=== PATIENT | male | born 1990 | race Caucasian/White ===

== ENCOUNTER 2019-03-12 01:58 | Emergency (ER) | payer OTHER ==
--- NOTE | 2019-03-12 02:10 | ED ---
Psychiatric Complaint - HPI Summary HPI Summary: A 29 y/o male presents to [facility] with a chief complaint of being brought in by police and [employer] ambulance on a .. He denies any depression, anxiety, SI or HI. Per police, he was threatening to kill and rape people in his [place] friends. The patient does not have any physical complaints today. He denies any fevers, N/V/D or abdominal pain. He reports drinking 2-6 beers daily and smoking cigarettes. He denies any current drug use. He is currently not taking any medications. - History Of Current Complaint Hx Obtained From: Patient, EMS, Other: - police Onset/Duration: Sudden Onset, Lasting Hours, Still Present Timing: Constant Severity Initially: Mild Severity Currently: Mild Character: Depressed Aggravating Factor(s): Nothing Alleviating Factor(s): Nothing Associated Signs And Symptoms: Positive: Hostile Related History: Positive For: Prior Psychiatric Issues Has Suicidal: Denies: Thoughts Has Homicidal: Denies: Thoughts - Allergies/Home Medications Allergies/Adverse Reactions: Allergies Allergy/AdvReac Type Severity Reaction Status Date / Time risperidone Allergy Severe Anxiety Verified 12/21/18 11:18 PMH/Surg Hx/FS Hx/Imm Hx Cardiovascular History: Denies: Hx Angina Sensory History: Denies: Hx Legally Blind, Hx Deafness Opthamlomology History: Reports: Hx Contacts or Glasses Denies: Hx Legally Blind Psychiatric History: Reports: Hx [facility] Tx, Other Psychiatric Issues/Disorders - presented with paranoid thoughts and bizarre behavior Denies: Hx Eating Disorder, Hx Inpatient Treatment, Hx of Violent Episodes Against Others - Cancer History Hx Chemotherapy: No Hx Radiation Therapy: No - Surgical History Surgery Procedure, Year, and Place: broken collar bone - Family History Known Family History: Negative: Seizure Disorder - Social History Alcohol Use: Rare Substance Use Type: Reports: Marijuana Substance Use Comment - Amount & Last Used: rare marijuana use Smoking Status (MU): Heavy Every Day Tobacco Smoker Review of Systems Negative: Fever Negative: Abdominal Pain, Vomiting, Diarrhea, Nausea Psychological: Other - positive: ., reportedly threatened to kill and rape friends All Other Systems Reviewed And Are Negative: Yes Physical Exam - Summary Physical Exam Summary: Constitutional: Well-developed, Well-nourished, Alert. (-) Distressed Skin: Warm, Dry HENT: Normocephalic; Atraumatic Eyes: Conjunctiva normal Neck: Musculoskeletal ROM normal neck. (-) JVD, (-) Stridor, (-) Tracheal deviation Cardio: Rhythm regular, rate normal, Heart sounds normal; Intact distal pulses; The pedal pulses are 2+ and symmetric. Radial pulses are 2+ and symmetric. (-) Murmur Pulmonary/Chest wall: Effort normal. (-) Respiratory distress, (-) Wheezes, (-) Rales Abd: Soft, (-) tenderness, (-) Distension, (-) Guarding, (-) Rebound Musculoskeletal: (-) Edema Lymph: (-) Cervical adenopathy Neuro: Alert, Oriented x3 Psych: Disheveled. Denies SI or HI. Triage Information Reviewed: Yes Vital Signs Reviewed: Yes Diagnostics - Laboratory Result Diagrams: 03/12/19 02:32 03/12/19 02:32 Lab Statement: Any lab studies that have been ordered have been reviewed, and results considered in the medical decision making process. Course/Dx - Course Course Of Treatment: A 29 y/o male presents to [facility] with a chief complaint of being brought in by police and [employer] ambulance on a 9.41. He denies any depression, anxiety, SI or HI. Per police, he was threatening to kill and rape people in his [place] friends. The physical exam revealed that the patient is disheveled but denies SI or HI. In the ED course the patient was given Ativan IM and a nicotine patch. Blood work, chemistries, urines and toxicology obtained. Serum alcohol of 288 at 02:32. This patient will be signed out from Dr. Galeas to Dr. Hall upon shift change at 07:00 03/12/19 pending medical clearance and MHE. - Differential Dx/Clinical Impression Provider Diagnosis: Schizophrenia, Depression Discharge - Sign-Out/Discharge Documenting (check all that apply): Sign-Out Patient Signing out patient TO: Gabbi Hall - pending clearance and MHE Patient Received Moderate/Deep Sedation with Procedure: No - Discharge Plan Condition: Stable Disposition: TRANS HIGHER LVL OF CARE FAC Referrals: No Primary Care Phys,NOPCP [Primary Care Provider] - - Billing Disposition and Condition Condition: STABLE Disposition: Trans Higher Lvl of Care Fac - Attestation Statements Document Initiated by Scribe: Yes Documenting Scribe: Glenn Michaels Provider For Whom Scribe is Documenting (Include Credential): Maira Schuler MD Scribe Attestation: I, Glenn Michaels, scribed for Maira Galeas MD on 03/13/19 at 0745. Scribe Documentation Reviewed: Yes Provider Attestation: The documentation as recorded by the scribe, Glenn Michaels accurately reflects the service I personally performed and the decisions made by me, Maira Galeas MD Status of Scribe Document: Viewed
[2019-03-12 02:39] LABS: ABS Basophils 0.1 10^3/ul (0-0.2); ABS Eosinophils 0.2 10^3/ul (0-0.6); ABS Lymphocytes 1.6 10^3/ul (1.0-4.8); ABS Monocytes 0.6 10^3/ul (0-0.8); ABS Neutrophils 3.6 10^3/ul (1.5-7.7); Eosinophil % 2.9 %; Hematocrit 40 % (42-52); Hemoglobin 14.2 g/dL (14.0-18.0); Lymphocyte % 25.8 %; Mean Corpuscular HGB Conc 35 g/dL (31-36); Mean Corpuscular Hemoglobin 34 pg (27-31); Mean Corpuscular Volume 96 fL (80-94); Mean Platelet Volume 7.8 fL (7.4-10.4); Platelet Count 309 10^3/uL (150-450); Red Blood Count 4.21 10^6 /uL (4.18-5.48); Red Cell Distribution Width 15 % (10-15)
[2019-03-12 02:55] LABS: ALT 89 U/L (7-52); AST 87 U/L (13-39); Albumin 4.7 g/dL (3.2-5.2); Albumin/Globulin Ratio 1.9 (1-3); Alkaline Phosphatase 64 U/L (34-104); Anion Gap 13 mmol/L (2-11); BUN/Creatinine Ratio 5.9 (8-20); Blood Urea Nitrogen 6 mg/dL (6-24); CO2 Carbon Dioxide 25 mmol/L (22-32); Calcium 9.2 mg/dL (8.6-10.3); Chloride 101 mmol/L (101-111); EGFR African American 103.1 (>60); EGFR Non-African American 85.2 (>60); Globulin 2.5 g/dL (2-4); Glucose 97 mg/dL (70-100); Potassium 3.5 mmol/L (3.5-5.0); Sodium 139 mmol/L (135-145); Total Protein 7.2 g/dL (6.4-8.9)
[2019-03-12 03:06] LABS: Urine Appearance Clear; Urine Bilirubin Negative (Negative); Urine Blood Negative (Negative); Urine Color Yellow; Urine Glucose Negative (Negative); Urine Ketones Negative (Negative); Urine Nitrite Negative (Negative); Urine Protein Negative (Negative); Urine Specific Gravity 1.006 (1.010-1.030); Urine Urobilinogen Negative (Negative)
[2019-03-12 03:19] LABS: Urine Benzodiazepine Screen None Detected (None Detect); Urine Opiates Screen None Detected (None Detect)
[2019-03-12 03:19] LABS: Acetaminophen < 15 mcg/mL; Alcohol 288 mg/dL (<10); Salicylate < 2.50 mg/dL (<30)
[2019-03-12 03:34] LABS: TSH (Thyroid Stimulating Horm) 1.75 mcIU/mL (0.34-5.60)
[2019-03-12] MEDS ORDERED: Lorazepam PYXIS KEY PRN (03:49)
[2019-03-12] MEDS ORDERED: LORazepam INJ* 2 MG/ML 1 ML VIAL IM ONE (03:49)
[2019-03-12] MEDS ORDERED: Nicotine* 4MG (FRUIT FLAVOR) GUM PO PRN (04:01)
[2019-03-12] MEDS ORDERED: Nicotine PATCH 21 MG/24 HR* PATCH TRANSDERM ONE (04:02)
[2019-03-12] MEDS ORDERED: Lorazepam PYXIS KEY ONE (04:09)
--- NOTE | 2019-03-12 07:13 | ED ---
Progress - Progress Note Progress Note: This pt is a sign out from Dr. Moran to Dr. Hall at shift change 0700 pending a MHE. - EKG/XRAY/CT EKG: NSR - 83 BPM, no ST T wave changes Comments: NSR at 83 BPM, nml axis deviation, nml ST waves, no stemi EKG taken at 1107 Course/Dx - Course Course Of Treatment: This pt is a sign out from Dr. Moran to Dr. Hall at shift change 0700 03/12/[address] oCrtez, psychiatrist, stated at 1110 that the pt would have to be transferred out of the facility to a higher level of care facility due to the diagnosis of schizophrenia depression. The transfer process began at 1116. His EKG was take at 1107 and shows a normal sinus rhythm aat 83 BPM with normal axis deviation, normal ST waves, and no stemi. At 1339 [facility] stated that they requested another a RAQUEL draw to determine that all the alcohol had been flushed from his system. Pt will be transfered to [place] [facility] after a consult at [address] Vera. - Diagnoses Provider Diagnoses: Schizophrenia, Depression - Provider Notifications Discussed Care Of Patient With: Stefano Cortez Time Discussed With Above Provider: 11:10 Instructed by Provider To: Transfer - involuntary to [facility]. Dr. Vera will accept Admit/Transition Orders Completed By ED Provider: Yes Reason For Transfer: Specialty or service not available at [facility] [place]. Discharge - Sign-Out/Discharge Documenting (check all that apply): Patient Departure - transfer to [facility] Patient Received Moderate/Deep Sedation with Procedure: No - Discharge Plan Condition: Stable Disposition: TRANS HIGHER LVL OF CARE FAC Referrals: No Primary Care Phys,NOPCP [Primary Care Provider] - - Billing Disposition and Condition Condition: STABLE Disposition: Trans Higher Lvl of Care Fac - Attestation Statements Document Initiated by Scribe: Yes Documenting Scribe: Fabricio Hickman Provider For Whom Scribe is Documenting (Include Credential): Gabbi Hall MD Scribe Attestation: Fabricio Rust, galaibed for Gabbi Hall MD on 03/12/19 at 1804. Scribe Documentation Reviewed: Yes Provider Attestation: The documentation as recorded by the scribeFabricio accurately reflects the service I personally performed and the decisions made by me, Gabbi Hall MD Status of Cyndie Document: Viewed
--- NOTE | 2019-03-12 16:04 | PN ---
ED Psychiatric Progress Note Date of Service: 03/12/19 Subjective: This is a 29 year-old M who is pending admission to [facility] / transfer to another psychiatric facility / discharge to home / or being observed secondary to HI. Pt. examined in room 13 at 1600. He is sitting on bed talking to 1:1. Objective: Vitals: Most recent vital signs documented below. General NAD, Alert Laboratory: Current laboratory results documented below. Assessment: schizophrenia. Plan: Pending transfer. Vital Signs Temp Pulse Resp BP Pulse Ox 99.5 F 127 20 168/97 98 03/12/19 02:11 03/12/19 02:11 03/12/19 04:15 03/12/19 02:11 03/12/19 02:11 Lab Results - Entire Visit 03/12/19 03/12/19 03/12/19 13:59 02:49 02:49 WBC RBC Hgb Hct MCV MCH MCHC RDW Plt Count MPV Neut % (Auto) Lymph % (Auto) Turner % (Auto) Eos % (Auto) Baso % (Auto) Absolute Neuts (auto) Absolute Lymphs (auto) Absolute Monos (auto) Absolute Eos (auto) Absolute Basos (auto) Absolute Nucleated RBC Nucleated RBC % Sodium Potassium Chloride Carbon Dioxide Anion Gap BUN Creatinine Est GFR ( Amer) Est GFR (Non-Af Amer) BUN/Creatinine Ratio Glucose Calcium Total Bilirubin AST ALT Alkaline Phosphatase Total Protein Albumin Globulin Albumin/Globulin Ratio TSH Urine Color Yellow Urine Appearance Clear Urine pH 6.0 Ur Specific [place] 1.006 L Urine Protein Negative Urine Ketones Negative Urine Blood Negative Urine Nitrate Negative Urine Bilirubin Negative Urine Urobilinogen Negative Ur Leukocyte Esterase Negative Urine Glucose Negative Salicylates Urine Opiates Screen None detected Acetaminophen Ur Barbiturates Screen None detected Ur Phencyclidine Scrn None detected Ur Amphetamines Screen None detected U Benzodiazepines Scrn None detected Urine Cocaine Screen None detected U Cannabinoids Screen None detected Serum Alcohol 30 H 03/12/19 03/12/19 02:32 02:32 WBC 6.0 RBC 4.21 Hgb 14.2 Hct 40 L MCV 96 H MCH 34 H MCHC 35 RDW 15 Plt Count 309 MPV 7.8 Neut % (Auto) 59.3 Lymph % (Auto) 25.8 Turner % (Auto) 10.7 Eos % (Auto) 2.9 Baso % (Auto) 1.3 Absolute Neuts (auto) 3.6 Absolute Lymphs (auto) 1.6 Absolute Monos (auto) 0.6 Absolute Eos (auto) 0.2 Absolute Basos (auto) 0.1 Absolute Nucleated RBC 0.0 Nucleated RBC % 0.0 Sodium 139 Potassium 3.5 Chloride 101 Carbon Dioxide 25 Anion Gap 13 H BUN 6 Creatinine 1.02 Est GFR ( Amer) 103.1 Est GFR (Non-Af Amer) 85.2 BUN/Creatinine Ratio 5.9 L Glucose 97 Calcium 9.2 Total Bilirubin 0.70 AST 87 H ALT 89 H Alkaline Phosphatase 64 Total Protein 7.2 Albumin 4.7 Globulin 2.5 Albumin/Globulin Ratio 1.9 TSH 1.75 Urine Color Urine Appearance Urine pH Ur Specific [place] Urine Protein Urine Ketones Urine Blood Urine Nitrate Urine Bilirubin Urine Urobilinogen Ur Leukocyte Esterase Urine Glucose Salicylates < 2.50 Urine Opiates Screen Acetaminophen < 15 Ur Barbiturates Screen Ur Phencyclidine Scrn Ur Amphetamines Screen U Benzodiazepines Scrn Urine Cocaine Screen U Cannabinoids Screen Serum Alcohol 288 H
[2019-03-12 16:57] VITALS: BP 135/76
== END 2019-03-12 17:07 | disposition short-term general hospital (02) ==
LOC: ED 01:58
DX: F20.9 Schizophrenia, unspecified (principal); F32.9 Major depressive disorder, single episode, unspecified; F17.210 Nicotine dependence, cigarettes, uncomplicated; Z88.8 Allergy status to other drugs, medicaments and biological substances; F12.90 Cannabis use, unspecified, uncomplicated
CPT/HCPCS: 36415; 80053; 80307; 80320; 80329; 81003; 84443; 85025; 93005; 96372; 99285; A9270-GY; G0480; J2060